=== PATIENT | male | born 1965 | race Caucasian/White ===

== ENCOUNTER 2017-11-08 10:13 | Outpatient (CLI) | payer BC | END 2017-11-08 10:14 | disposition home or self-care (01) | LOC: BICRAD 10:13 | PROVIDERS: ATTEND Internal Medicine Rheumatology | DX: M45.9 Ankylosing spondylitis of unspecified sites in spine (principal) | CPT/HCPCS: 72100 ==

== ENCOUNTER 2018-01-05 08:38 | Outpatient (CLI) | payer BC | END 2018-01-05 08:39 | disposition home or self-care (01) | LOC: BICRAD 08:38 | PROVIDERS: ATTEND Internal Medicine Rheumatology | DX: M17.0 Bilateral primary osteoarthritis of knee (principal) ==

== ENCOUNTER 2020-02-11 14:53 | Outpatient (CLI) | payer BC ==
--- NOTE | 2020-02-11 15:58 | RAD ---
LUMBAR SPINE 4 VIEWS: HISTORY: Ankylosing spondylitis. Back pain. FINDINGS: Lumbar vertebrae maintain normal height and alignment. The disk spaces are preserved. Mild anteroli sthesis at L5-S1 with evidence of posterior spondylolysis. Minimal osteophytes. No evidence of synd esmophyte formatio. No evidence of ankylosing spondylitis. Facet hypertrophy. IMPRESSION: Mild anterolisthesis at L5-S1 with posterior spondylysis. Mild degenerative changes as described. POS: MIKAELA
--- NOTE | 2020-02-11 16:08 | RAD ---
CERVICAL SPINE EIGHT VIEWS: Indications: Ankylosis, spondylitis. FINDINGS: Cervical vertebra maintain height and alignment. There are degenerative changes in the lower cervical spine. Loss of disc space is noted at C5-6 and C6-7. Mild anterior osteophytes at these levels with mild spondylosis at C5-6 and C6-7 disc spaces. Mild facet hypertrophy. Alignment is preserved with fl exion and extension. Foraminal encroachment due to uncinate hypertrophy at the C5-6 and C6-7 levels. IMPRESSION: Moderate degenerative changes at C5-6 and C6-7 as described. No evidence of syndesmophyte formation o r ankylosing spondylitis. POS: [facility]W
== END 2020-02-11 14:54 | disposition home or self-care (01) ==
LOC: BICRAD 14:53
PROVIDERS: ATTEND Internal Medicine Rheumatology
DX: M45.0 Ankylosing spondylitis of multiple sites in spine (principal); M47.812 Spondylosis without myelopathy or radiculopathy, cervical region; M47.817 Spondylosis without myelopathy or radiculopathy, lumbosacral region; M43.16 Spondylolisthesis, lumbar region
CPT/HCPCS: 72052; 72110

== ENCOUNTER 2021-06-18 14:56 | Outpatient (CLI) | payer BC | END 2021-06-18 14:57 | disposition home or self-care (01) | LOC: BICRAD 14:56 | PROVIDERS: ATTEND Internal Medicine Rheumatology | DX: M25.561 Pain in right knee (principal) ==